=== PATIENT | male | born 1935 | race Asian ===

== ENCOUNTER 2017-12-30 11:15 | Inpatient (IN) | payer MEDICARE, OTHER ==
[2017-12-30] MEDS: IV NORMAL SALINE 1000ML BAG 1,000 ML IV ×6 (11:25→18:39)
[2017-12-30 12:27] LABS: ADD MAN DIFF? NO
[2017-12-30 12:32] LABS: BASE EXCESS ABG -8 mmol/L (-3-3); HCO3 ABG 14 mmol/L (21-28); PCO2 ABG 21 mmHg (35-46); PH ABG 7.45 (7.35-7.45); SAT O2 ABG 80 % (92-99)
[2017-12-30 12:39] LABS: PO2 ABG 49 mmHg (65-108)
[2017-12-30 12:45] LABS: BASO % 0 % (0-3); EOS % 0 % (0-3); HEMATOCRIT 36.3 % (39.0-53.0); HEMOGLOBIN 11.9 g/dL (13.0-17.5); LYMPH % 12 % (24-48); MEAN CORPUSCULAR HEMOGLOBIN 28 pg (25-35); MEAN CORPUSCULAR HGB CONC 33 g/dL (31-37); MEAN CORPUSCULAR VOLUME 85 fL (79-100); MONO # 0.7 x10^3/uL (0.0-1.1); MONO % 8 % (0-9); NEUT # 6.6 x10^3uL (1.8-7.7); NEUT % 79 % (31-73); PLATELET COUNT 197 x10^3/uL (140-400); RED BLOOD COUNT 4.25 x10^6/uL (4.30-5.70); RED CELL DISTRIBUTION WIDTH 17.4 % (11.5-14.5); WHITE BLOOD COUNT 8.3 x10^3/uL (4.0-11.0)
[2017-12-30 12:48] LABS: ANION GAP 26 (6-14); BLOOD UREA NITROGEN 143 mg/dL (8-26); BUN/CREATININE RATIO 28 (6-20); CALCIUM 8.7 mg/dL (8.5-10.1); CARBON DIOXIDE 15 mmol/L (21-32); CHLORIDE 102 mmol/L (98-107); CREATININE 5.1 mg/dL (0.7-1.3); GFR 10.9; GLUCOSE 199 mg/dL (70-99); POTASSIUM 4.5 mmol/L (3.5-5.1); SODIUM 143 mmol/L (136-145)
[2017-12-30 12:54] LABS: ALBUMIN/GLOBULIN RATIO 0.9 (1.0-1.7); ALK PHOS 77 U/L (46-116); ALT (SGPT) 21 U/L (16-63); AST (SGOT) 43 U/L (15-37); TOTAL BILIRUBIN 1.8 mg/dL (0.2-1.0); TOTAL PROTEIN 6.2 g/dL (6.4-8.2)
[2017-12-30] MEDS ORDERED: PIP/TAZO PER PHARMACY MC ×4 (13:00→16:45)
[2017-12-30] MEDS ORDERED: VANCOMYCIN PER PHARMACY MC ×2 (13:00)
[2017-12-30 13:01] LABS: TROPONINI 0.072 ng/mL (0.000-0.055)
[2017-12-30 13:16] LABS: LACTIC ACID 9.5 mmol/L (0.4-2.0)
[2017-12-30 13:16] LABS: FECAL OB PT POSITIVE (NEG); NEG OBC FOB NEG; POS OBC FOB POS
[2017-12-30] MEDS: IV NORMAL SALINE 500ML BAG 500 ML IV ×2 (13:23)
[2017-12-30] MEDS: PIPERACILLIN/TAZOBACTAM 2.25 GM in IV NORMAL SALINE 50ML 50 ML IV (13:24)
[2017-12-30] MEDS: VANCOMYCIN 1 GM in IV 1/2 NORMAL SALINE 250 ML IV (13:54)
[2017-12-30 14:00] LABS: INFLUENZA A PATIENT NEGATIVE (NEGATIVE); INFLUENZA B PATIENT NEGATIVE (NEGATIVE); OBC FLU VALID
[2017-12-30] MEDS: NOREPINEPHRIN PREMIX 250 ML IV ×2 (14:32)
[2017-12-30] MEDS ORDERED: ETOMIDATE 20 MG/10 ML VIAL. IV ×2 (15:00)
[2017-12-30] MEDS ORDERED: ROCURONIUM 50 MG/5 ML VIAL. ×2 (15:00)
[2017-12-30 15:06] LABS: LACTIC ACID 8.7 mmol/L (0.4-2.0)
[2017-12-30 17:13] LABS: LACTIC ACID 8.9 mmol/L (0.4-2.0)
[2017-12-30] MEDS: IPRATRPIUM/ALBUTEROL 0.5/2.5MG 3 ML NEBU. NEB ×4 (17:30→19:28)
[2017-12-30] MEDS ORDERED: DEXTROSE 50% 25 GM / 50ML DISP.SYRIN. IV ×2 (17:30)
[2017-12-30] MEDS: VANCOMYCIN PER PHARMACY MC ×2 (17:31)
[2017-12-30] MEDS ORDERED: SODIUM BICARBONATE VIAL 50 MEQ in IV DEXTROSE 5% 1,000 ML IV (18:00)
[2017-12-30] MEDS: methylPREDNISolone SOD SUCC PF 125 MG/2 ML VIAL. IV ×2 (18:38)
[2017-12-30] MEDS: PANTOPRAZOLE IV PUSH 40 MG VIAL. IVP ×2 (18:38)
[2017-12-30 19:06] LABS: INR 1.5 (0.8-1.1); PROTHROMBIN TIME PATIENT 17.4 SEC (11.7-14.0)
[2017-12-30] MEDS: SODIUM BICARBONATE VIAL 100 MEQ in IV DEXTROSE 5% 1,000 ML IV (19:30)
[2017-12-30 19:34] LABS: LACTIC ACID 10.7 mmol/L (0.4-2.0)
[2017-12-30] MEDS: methylPREDNISolone SOD SUCC PF 40 MG/ML VIAL. IV ×2 (21:35)
[2017-12-30] MEDS: PIPERACILLN-TAZO 2.25GM PREMIX 50 ML IV ×2 (21:35)
[2017-12-30] MEDS ORDERED: PIPERACILLIN/TAZOBACTAM 2.25 GM in IV NORMAL SALINE 50ML 50 ML IV (22:00)
[2017-12-30 23:28] LABS: BASE EXCESS ABG -24 mmol/L (-3-3); HCO3 ABG 3 mmol/L (21-28); PO2 ABG 177 mmHg (65-108); SAT O2 ABG 98 % (92-99)
[2017-12-30 23:31] LABS: PH ABG 7.12 (7.35-7.45)
[2017-12-30 23:32] LABS: PCO2 ABG < 15 mmHg (35-46)
[2017-12-31] MEDS: SODIUM BICARB ADULT 8.4% 50 MEQ/50 ML DISP.SYRIN. IV ×4 (00:02→07:15)
[2017-12-31 00:35] LABS: BASE EXCESS ABG -20 mmol/L (-3-3); BODY TEMP ABG 95.8 DEG; CORRECTED PCO2 ABG 21 mmHg; CORRECTED PH ABG 7.15; CORRECTED PO2 ABG 186 mmHg; HCO3 ABG 7 mmol/L (21-28); PCO2 ABG 23 mmHg (35-46); PO2 ABG 194 mmHg (65-108); SAT O2 ABG 98 % (92-99)
[2017-12-31 00:43] LABS: FIO2 ABG 50; PH ABG 7.13 (7.35-7.45)
[2017-12-31] MEDS: NOREPINEPHRIN PREMIX 250 ML IV ×6 (00:53→10:57)
[2017-12-31] MEDS: VASOPRESSIN 40 UNIT in IV DEXTROSE 5% 100 ML IV ×2 (01:04→15:55)
[2017-12-31] MEDS: MIDAZOLAM 100MG/100ML PREMIX 100 ML IV ×2 (03:56)
[2017-12-31] MEDS: methylPREDNISolone SOD SUCC PF 40 MG/ML VIAL. IV ×4 (05:44→15:44)
[2017-12-31] MEDS: PIPERACILLN-TAZO 2.25GM PREMIX 50 ML IV ×4 (05:45→15:44)
[2017-12-31 05:53] LABS: BASO % 0 % (0-3); EOS % 0 % (0-3); HEMATOCRIT 38.4 % (39.0-53.0); LYMPH # 0.5 x10^3/uL (1.0-4.8); LYMPH % 5 % (24-48); MEAN CORPUSCULAR HEMOGLOBIN 28 pg (25-35); MEAN CORPUSCULAR HGB CONC 31 g/dL (31-37); MEAN CORPUSCULAR VOLUME 91 fL (79-100); MONO # 0.4 x10^3/uL (0.0-1.1); MONO % 5 % (0-9); NEUT # 8.1 x10^3uL (1.8-7.7); NEUT % 90 % (31-73); PLATELET COUNT 186 x10^3/uL (140-400); RED BLOOD COUNT 4.22 x10^6/uL (4.30-5.70); RED CELL DISTRIBUTION WIDTH 18.6 % (11.5-14.5)
[2017-12-31 06:12] LABS: ADD MAN DIFF? YES
[2017-12-31] MEDS: PHENYLEPHRINE INJ 80 MG in IV NORMAL SALINE 250ML 250 ML IV ×2 (06:15→13:33)
[2017-12-31 06:29] LABS: THYROID STIM HORMONE (TSH) 15.248 uIU/mL (0.358-3.74)
[2017-12-31 06:34] LABS: ALBUMIN 2.3 g/dL (3.4-5.0); ALBUMIN/GLOBULIN RATIO 0.6 (1.0-1.7); ALK PHOS 74 U/L (46-116); ANION GAP 33 (6-14); BLOOD UREA NITROGEN 128 mg/dL (8-26); BUN/CREATININE RATIO 25 (6-20); CALCIUM 7.3 mg/dL (8.5-10.1); CHLORIDE 104 mmol/L (98-107); CREATININE 5.2 mg/dL (0.7-1.3); GFR 10.6; GLUCOSE 270 mg/dL (70-99); SODIUM 144 mmol/L (136-145); TOTAL BILIRUBIN 2.2 mg/dL (0.2-1.0); TOTAL PROTEIN 5.9 g/dL (6.4-8.2)
[2017-12-31 06:56] LABS: CARBON DIOXIDE 7 mmol/L (21-32); POTASSIUM 6.2 mmol/L (3.5-5.1)
[2017-12-31 06:59] LABS: ALT (SGPT) 443 U/L (16-63); AST (SGOT) 940 U/L (15-37)
[2017-12-31 07:06] LABS: LACTIC ACID 18.6 mmol/L (0.4-2.0)
[2017-12-31] MEDS: IPRATRPIUM/ALBUTEROL 0.5/2.5MG 3 ML NEBU. NEB ×6 (07:55→16:00)
[2017-12-31 08:29] LABS: BASE EXCESS ABG -24 mmol/L (-3-3); HCO3 ABG 5 mmol/L (21-28); PO2 ABG 75 mmHg (65-108); SAT O2 ABG 87 % (92-99)
[2017-12-31 08:32] LABS: PH ABG 7.07 (7.35-7.45)
[2017-12-31 08:33] LABS: PCO2 ABG 16 mmHg (35-46)
[2017-12-31 08:34] LABS: FIO2 ABG 40
[2017-12-31] MEDS: SODIUM BICARBONATE VIAL 100 MEQ in IV DEXTROSE 5% 1,000 ML IV ×3 (08:40→13:35)
[2017-12-31] MEDS: PANTOPRAZOLE IV PUSH 40 MG VIAL. IVP ×2 (09:19)
[2017-12-31 10:18] LABS: % BANDS 3 % (0-9); % LYMPHS 4 % (24-48); % MONOS 5 % (0-10); % SEGS 88 % (35-66); NUCLEATED RBC 1; PLT ESTIMATE ADEQUATE (ADEQUATE)
[2017-12-31 11:58] LABS: LIPASE 401 U/L (73-393)
[2017-12-31 12:03] LABS: CREATINE KINASE 204 U/L (39-308)
[2017-12-31 12:03] LABS: CHOLESTEROL 159 mg/dL (0-200); CHOLESTEROL/HDL RATIO 4.8; HDLC 33 mg/dL (40-60); LDLC 89 mg/dL (0-100); NON-HDL CHOLESTEROL 126 mg/dL (0-129); TRIGLYCERIDES 183 mg/dL (0-150); VLDLC 37 mg/dL (0-40)
[2017-12-31 12:05] LABS: TROPONINI 0.395 ng/mL (0.000-0.055)
[2017-12-31 12:22] LABS: MRSA BY PCR Negative (Negative)
[2017-12-31 13:17] LABS: LACTIC ACID 21.6 mmol/L (0.4-2.0)
[2017-12-31] MEDS: VANCOMYCIN PER PHARMACY MC ×2 (13:56)
[2017-12-31] MEDS ORDERED: MORPHINE SULFATE 2 MG/ML DISP.SYRIN. IV ×4 (17:00)
== END 2017-12-31 17:20 | disposition expired | DRG 871 ==
LOC: ER 11:15 → 1 WEST ICU 14:21
PROC: 02HV33Z Insertion of Infusion Device into Superior Vena Cava, Percutaneous Approach (ICD-10-PCS; principal; 2017-12-30)
PROC: 5A1935Z Respiratory Ventilation, Less than 24 Consecutive Hours (ICD-10-PCS; 2017-12-30)
PROC: B548ZZA Ultrasonography of Superior Vena Cava, Guidance (ICD-10-PCS; 2017-12-30)
DX: A41.9 Sepsis, unspecified organism (principal); I21.4 Non-ST elevation (NSTEMI) myocardial infarction; J96.01 Acute respiratory failure with hypoxia; K72.00 Acute and subacute hepatic failure without coma; N17.0 Acute kidney failure with tubular necrosis; J18.9 Pneumonia, unspecified organism; R65.21 Severe sepsis with septic shock; G93.1 Anoxic brain damage, not elsewhere classified; E46 Unspecified protein-calorie malnutrition; G93.41 Metabolic encephalopathy; K62.5 Hemorrhage of anus and rectum; D64.9 Anemia, unspecified; G30.9 Alzheimer's disease, unspecified; F02.80 Dementia in other diseases classified elsewhere, unspecified severity, without behavioral disturbance, psychotic disturbance, mood disturbance, and anxiety; E83.51 Hypocalcemia; E03.9 Hypothyroidism, unspecified; F19.90 Other psychoactive substance use, unspecified, uncomplicated; I10 Essential (primary) hypertension; Z68.20 Body mass index [BMI] 20.0-20.9, adult; Z51.5 Encounter for palliative care
CPT/HCPCS: 36415; 36569; 36600; 70450; 71045; 71250; 74176; 80053; 80061; 82274; 82550; 82805; 83605; 83690; 84443; 84484; 85007; 85025; 85610; 86850; 86900; 86901; 86920; 87040; 87205; 87641; 87804; 87804-59; 93005; 94002; 94003; 94640; 96361; 96365; 96366; 96367; 99291; 99291-25; C9113; J2060; J2250; J2543; J2920; J2930; J3370; J3490; J7030; J7040; J7050; J7620